=== PATIENT | male | born 1935 | race Caucasian/White ===

== ENCOUNTER 2017-10-13 07:39 | Outpatient (CLI) | payer MEDICARE ==
--- NOTE | 2017-10-13 10:39 | MRI ---
MRI LUMBAR SPINE: 10/13/2017 COMPARISON: 07/28/2016 TECHNIQUE: Multiplanar, multisequence, noncontrast enhanced MRI of the lumbar spine obtained. FINDINGS: Images demonstrate an old compression fracture at the L1 level with approximately 50% anterior height loss. This is unchanged since the previous exam. T12-L1: There is mild broad-based disk bulge. No significant degree of central or neural foraminal narrowing is seen. L1-L2: Disk desiccation is seen. There is a mild broad-based disk bulge. No significant degree of central stenosis is seen. This is unchanged since the previous comparison exam. A small amount of f luid is seen in the L1-L2 facet joints. L2-L3: There is a broad-based disk bulge with bilateral facet and ligamentum flavum hypertrophy. So me fluid is seen in the L2-L3 facet joints. This results in mild to moderate central and lateral rec ess stenosis. There is mild bilateral neural foraminal narrowing seen. An annular fissure is seen a t the posterior aspect of the annulus fibrosis at L3-L4. L3-L4: There is a broad-based disk bulge with bilateral facet hypertrophy. This results in mild lavinia tral and lateral recess stenosis. Moderate bilateral neural foraminal narrowing is seen. L4-L5: Disk desiccation is seen. There is a broad-based disk bulge with bilateral facet and ligamen ke flavum hypertrophy resulting in mild central and lateral recess stenosis. There is mild to moder ate bilateral neural foraminal narrowing due to the facet hypertrophy. L5-S1: Disk desiccation is seen. There is a broad-based disk bulge with severe facet hypertrophy. This results in minimal central stenosis. There is moderate right and moderate to severe left-sided neural foraminal narrowing due to the facet hypertrophy. Fluid is seen in the L5-S1 facet joints. F indings unchanged since the previous comparison exam from 07/28/2016. Also noted are bilateral parapelvic renal cysts. IMPRESSION: Old L1 compression fracture, unchanged since the previous exam. Multilevel disk degenerative changes and facet hypertrophy are seen. No significant interval changes seen. No evidence of significant c entral stenosis seen. Some areas of neural foraminal narrowing are present, as described above. Thi s is, however, stable and unchanged since the previous examination. POS: [facility]
== END 2017-10-13 07:40 | disposition home or self-care (01) ==
LOC: TBSIIMAG 07:39
PROVIDERS: ATTEND Orthopaedic Surgery
DX: M54.32 Sciatica, left side (principal); Z87.81 Personal history of (healed) traumatic fracture; M47.896 Other spondylosis, lumbar region; M99.83 Other biomechanical lesions of lumbar region; M99.84 Other biomechanical lesions of sacral region
CPT/HCPCS: 72148

== ENCOUNTER 2017-10-19 12:49 | Outpatient (CLI) | payer MEDICARE ==
--- NOTE | 2017-10-19 14:30 | MRI ---
MRI LEFT HIP WITHOUT CONTRAST: HISTORY: N25.552. Left hip pain. COMPARISON: MRI left hip 04/26/13. FINDINGS: No fracture. No malalignment. Osseous acetabulum is present bilaterally. This indicates chronic la bral degeneration. No avulsion fracture. No marrow infiltrative process. Advanced facet arthrosis lower lumbar spine. There is moderate narrowing at the pubic symphysis with osteophyte formation. TENDONS: There is some mild tearing of the gluteus medias tendon with tendinosis. Low-grade tendinosis of the gluteus minimus tendon. The iliopsoas tendon appears bifid with mild tendinosis. There is marked tendinosis and undersurface tearing of the common hamstrings tendon and semimembranos us tendons. SOFT TISSUES: There is a mild venous varicosity abutting the sciatic nerve after exiting the greater sciatic notch. CARTILAGE: There is advanced cartilage fissuring and fraying of the acetabular roof. The femoral head cartilage has only small volume fraying. Small osteophyte formation of the femoral head/neck. Ligament of Teres is thickened. LABRUM: There is an os acetabulum. There is degenerative tearing throughout the anterior and superior labrum . IMPRESSION: 1. 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 2. Low-grade tendinosis and partial tearing of the gluteus medius tendon. 3. A tendinopathy of the common hamstrings tendon and semimembranosus tendon. 4. Venous varicosities abutting the sciatic nerve after exiting the greater sciatic foramen. POS: [facility]
== END 2017-10-19 12:50 | disposition home or self-care (01) ==
LOC: TBSIIMAG 12:49
PROVIDERS: ATTEND Orthopaedic Surgery
DX: M25.552 Pain in left hip (principal); M54.32 Sciatica, left side; M16.12 Unilateral primary osteoarthritis, left hip; M25.752 Osteophyte, left hip; I83.92 Asymptomatic varicose veins of left lower extremity; M67.854 Other specified disorders of tendon, left hip; M24.852 Other specific joint derangements of left hip, not elsewhere classified

== ENCOUNTER 2019-02-16 15:03 | Outpatient (CLI) | payer MEDICARE ==
--- NOTE | 2019-02-16 15:43 | CT ---
CT of the lumbar spine without contrast: 02/16/2019 COMPARISON: None HISTORY: Low back pain TECHNIQUE: Axial CT imaging at 3 mm intervals from the thoracolumbar junction through the lower sacru m without contrast. Coronal and sagittal reformatted imaging obtained FINDINGS: Evaluation for central canal and/or neural foraminal stenosis is limited on routine CT. Chronic-appearing anterior wedge compression fracture of L1 noted with approximately 35% loss of vert ebral body height anteriorly. At T11-T12 there is disc space narrowing with prominent anterior osteophyte formation and vacuum disc formation. There is mild bilateral facet hypertrophy with probab le mild/moderate central canal stenosis and probable mild to moderate bilateral neural foraminal stenosis. T12-L1: There is disc space narrowing and degenerative endplate change. There is no osseous cause of significant central canal stenosis. Mild posterior osteophyte formation causes probable mild central canal stenosis. L1-2: There is disc space narrowing and anterior osteophyte formation with mild posterior osteophyte formation and mild bilateral facet hypertrophy. No osseous cause of significant central canal or neural foraminal stenosis. L2-3: There is vacuum disc formation and bilateral facet hypertrophy. There is mild/moderate neural f oraminal stenosis, left greater than right. There is probable mild central canal stenosis. L3-4: There is mild disc bulge and prominent bilateral facet hypertrophy with moderate bilateral neur al foraminal stenosis and at least mild central canal stenosis. L4-5: There is prominent bilateral facet hypertrophy and hypertrophy of the ligamentum flavum. There is mild disc bulge suspected with at least moderate central canal stenosis. There is moderate/severe bilateral neural foraminal stenosis. L5-S1: There is 4-5 mm of anterolisthesis. Disc space narrowing and vacuum disc formation noted. Bila teral facet hypertrophy. Moderate/severe bilateral neural foraminal stenosis. Mild central canal stenosis. There is scattered atherosclerotic calcification of the abdominal aorta, prominent in the infrarenal region, incompletely assessed on this examination. No acute fracture or evidence of dislocation. No lytic or blastic bone lesion. Please note that the S1 vertebral body appears to be a transitional in nature and the most inferior n ormally formed intervertebral disc space is labeled as L5-S1 for the basis of this exam. 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 Evaluation for central canal and/or neural foraminal stenosis could be best achieved via MRI or CT myelogram.
== END 2019-02-16 15:04 | disposition home or self-care (01) ==
LOC: TBSIIMAG 15:03
PROVIDERS: ATTEND Neurological Surgery
DX: M54.5 Low back pain (principal); M47.816 Spondylosis without myelopathy or radiculopathy, lumbar region
CPT/HCPCS: 72131

== ENCOUNTER 2022-02-06 14:13 | Outpatient (CLI) | payer MEDICARE | END 2022-02-06 14:14 | disposition home or self-care (01) | LOC: BICRAD 14:13 | PROVIDERS: ATTEND Family Medicine | DX: M54.50 Low back pain, unspecified (principal); M47.816 Spondylosis without myelopathy or radiculopathy, lumbar region | CPT/HCPCS: 72100 ==

== ENCOUNTER 2022-08-13 12:32 | Outpatient (CLI) | payer MEDICARE | END 2022-08-13 12:33 | disposition home or self-care (01) | LOC: SCSMRI 12:32 | PROVIDERS: ATTEND Internal Medicine | DX: C43.59 Malignant melanoma of other part of trunk (principal) | CPT/HCPCS: 70210; 70553 ==

== ENCOUNTER → 2022-08-13 | Outpatient (CLI) | payer MEDICARE | LOC: PET 09:30 | PROVIDERS: ATTEND Internal Medicine | DX: C43.9 Malignant melanoma of skin, unspecified (principal); C43.59 Malignant melanoma of other part of trunk | CPT/HCPCS: 78816; A9552; 70210; 70553 ==

== ENCOUNTER 2022-10-02 06:55 | Day surgery (SDC) | payer MEDICARE ==
[2022-09-30 14:17] VITALS: BMI 28.2
[2022-10-02 10:31] LABS: Hemoglobin 14.6 g/dL (14.0-18.0); Mean Corpuscular HGB CONC 34.5 g/dL (32.0-36.0); Mean Corpuscular Volume 95.7 fl (78.0-98.0); Mean Platelet Volume 12.4 fL (7.4-10.4); Platelet Count 123 10x3/uL (130-400); RBC Distribution Width 12.2 % (11.5-14.5); Red Blood Cell (RBC) Count 4.42 mill/uL (4.70-6.10)
[2022-10-02] MEDS ORDERED: Bacitracin Zinc Ointment 30 gm TUBE ONE (10:34)
[2022-10-02] MEDS ORDERED: Bupivacaine 0.25% HCL 30 ML VIAL ONE (10:34)
[2022-10-02] MEDS ORDERED: Methylene Blue 50 MG/10 ML AMPUL ONE (10:35)
[2022-10-02 10:57] LABS: Anion Gap 14 mmol/L (10-20); BUN (Urea Nitrogen) 26 mg/dL (8.4-25.7); Calc. Creatinine Clearance 60 mL/min (70-130); Calcium 9.6 mg/dL (7.8-10.44); Carbon Dioxide 23 mmol/L (23-31); Chloride 106 mmol/L (98-107); Estimated GFR 55; Glucose 121 mg/dL (83-110); Sodium 138 mmol/L (136-145)
[2022-10-02] MEDS ORDERED: fentaNYL PF 100 MCG/2 ML SYRINGE ONE (11:23)
[2022-10-02] MEDS ORDERED: CEFAZOLIN 2 GM VIAL ONE (11:34)
[2022-10-02] MEDS ORDERED: Sodium Chloride 0.9% 100 ML ONE (11:34)
[2022-10-02] MEDS ORDERED: ePHEDrine Sulfate 50 MG/10 ML VIAL ONE (11:50)
[2022-10-02] MEDS ORDERED: Lidocaine 1% PF 5 ML VIAL ONE (11:50)
[2022-10-02] MEDS ORDERED: Ondansetron PF 4 MG/2 ML Vial ONE (11:50)
[2022-10-02] MEDS ORDERED: Rocuronium Bromide 10 MG/ML (10ML VIAL) ONE (11:50)
[2022-10-02] MEDS ORDERED: PROPOFOL 200 MG/20 ML VIAL ONE (11:50)
[2022-10-02] MEDS ORDERED: Bupivacaine/Epinephrine 0.25% 30 ML VIAL ONE (11:51)
[2022-10-02] MEDS ORDERED: Magnesium 5 GM/10 ML VIAL ONE (11:51)
[2022-10-02] MEDS ORDERED: Isosulfan Blue 50 MG/5 ML VIAL ONE (11:51)
== END 2022-10-02 18:12 | disposition home or self-care (01) ==
LOC: SDC 06:55
PROVIDERS: ATTEND Plastic Surgery
PROC: 0HB6XZZ Excision of Back Skin, External Approach (ICD-10-PCS; principal; 2022-10-02)
DX: C43.59 Malignant melanoma of other part of trunk (principal)
CPT/HCPCS: 11606; 12032; 38525; 78195; 80048; 85027; 93005; 97139 ×2; A9541; Q9968; 88305; 88307; 93010; J2405; J2704; J3475; J3490; S0020

== ENCOUNTER 2023-03-05 15:27 | Outpatient (CLI) | payer MEDICARE ==
[2023-03-05 17:04] LABS: Anion Gap 12 mmol/L (10-20); BUN (Urea Nitrogen) 27 mg/dL (8.4-25.7); Calc. Creatinine Clearance 0 mL/min (70-130); Calcium 9.1 mg/dL (7.8-10.44); Carbon Dioxide 26 mmol/L (23-31); Chloride 109 mmol/L (98-107); Estimated GFR 55; Glucose 79 mg/dL (83-110); Potassium 5.2 mmol/L (3.5-5.1); Sodium 142 mmol/L (136-145)
== END 2023-03-05 15:28 | disposition home or self-care (01) ==
LOC: LABBT 15:27
PROVIDERS: ATTEND Neurological Surgery
DX: Z01.812 Encounter for preprocedural laboratory examination (principal); M48.062 Spinal stenosis, lumbar region with neurogenic claudication
CPT/HCPCS: 80048

== ENCOUNTER 2023-03-12 05:41 | Day surgery (SDC) | payer MEDICARE ==
[2023-03-05 16:34] VITALS: BMI 28.8
[2023-03-12] MEDS ORDERED: Rocuronium Bromide 10 MG/ML (10ML VIAL) ONE ×2 (06:23→07:31)
[2023-03-12] MEDS ORDERED: PROPOFOL 20 ML ONE (06:23)
[2023-03-12] MEDS ORDERED: Ondansetron PF 4 MG/2 ML Vial ONE ×2 (06:24→07:31)
[2023-03-12] MEDS ORDERED: Lidocaine 1% PF 5 ML VIAL ONE ×2 (06:24→07:31)
[2023-03-12] MEDS ORDERED: fentaNYL PF 100 MCG/2 ML SYRINGE ONE (06:26)
[2023-03-12] MEDS ORDERED: Bupivacaine PF 0.5% 30 ML VIAL ONE (06:37)
[2023-03-12] MEDS ORDERED: EPINEPHrine 1 MG/ML VIAL ONE (06:37)
[2023-03-12] MEDS ORDERED: Thrombin 5000 UNITS/5 ML VIAL ONE (06:37)
[2023-03-12] MEDS ORDERED: CEFAZOLIN 2 GM VIAL ONE ×2 (06:51→11:08)
[2023-03-12] MEDS ORDERED: Sodium Chloride 0.9% 100 ML ONE ×2 (06:51→11:08)
[2023-03-12] MEDS ORDERED: SUGAMMADEX SODIUM 200 MG/2 ML VIAL ONE (07:09)
[2023-03-12] MEDS ORDERED: ePHEDrine Sulfate 50 MG/10 ML VIAL ONE (07:14)
[2023-03-12] MEDS ORDERED: PROPOFOL 200 MG/20 ML VIAL ONE (07:31)
[2023-03-12] MEDS ORDERED: Dexamethasone 20 MG/5 ML VIAL ONE (07:31)
[2023-03-12] MEDS ORDERED: PHENYLEPHRINE-NS 100 MCG/ML 10 ML SYRINGE ONE (07:38)
[2023-03-12] MEDS ORDERED: Ketorolac Tromethamine 30 MG/ML VIAL ONE (09:47)
[2023-03-12] MEDS ORDERED: fentaNYL 50 mcg/mL 1 mL Vial ONE (09:48)
[2023-03-12] MEDS ORDERED: Tamsulosin HCl 0.4 MG CAP ONE (09:54)
[2023-03-12] MEDS ORDERED: traMADol HCl 50 MG TAB ONE (11:08)
== END 2023-03-12 12:30 | disposition home or self-care (01) ==
LOC: SDC 05:41
PROVIDERS: ATTEND Neurological Surgery
PROC: 01NB0ZZ Release Lumbar Nerve, Open Approach (ICD-10-PCS; principal; 2023-03-12)
DX: M48.062 Spinal stenosis, lumbar region with neurogenic claudication (principal); M54.16 Radiculopathy, lumbar region; E11.9 Type 2 diabetes mellitus without complications; I25.10 Atherosclerotic heart disease of native coronary artery without angina pectoris; E78.5 Hyperlipidemia, unspecified; E03.9 Hypothyroidism, unspecified; Z87.891 Personal history of nicotine dependence; Z90.49 Acquired absence of other specified parts of digestive tract; Z96.659 Presence of unspecified artificial knee joint; Z96.619 Presence of unspecified artificial shoulder joint; Z79.82 Long term (current) use of aspirin; Z79.899 Other long term (current) drug therapy; Z79.84 Long term (current) use of oral hypoglycemic drugs; Z79.890 Hormone replacement therapy; Z88.8 Allergy status to other drugs, medicaments and biological substances
CPT/HCPCS: 63047; 63048; 82962; J0171; J3010; 36416; J1100; J1885; J2405; J2704; J3490; S0020